=== PATIENT | female | born 1980 | race African-American/Black ===

== ENCOUNTER 2019-11-29 10:33 | Inpatient (IN) | payer MEDICAID ==
[~2019-11-29] VITALS: Ht 157.5 cm; Wt 79.4 kg
[2019-11-29 12:22] LABS: BASOPHILS % (AUTO) 0.5 % (0.0-2.0); EOSINOPHILS % (AUTO) 0.3 % (1.0-6.0); HEMATOCRIT 39.2 % (36-46); HEMOGLOBIN 13.3 g/dL (12.0-16.0); LYMPHOCYTES # (AUTO) 2.4 K/uL (1.0-4.8); LYMPHOCYTES % (AUTO) 24.9 % (22.0-44.0); MEAN CORPUSCULAR HGB CONC 33.9 G/dL (31.0-37.0); MEAN CORPUSCULAR VOLUME 91 fL (80-100); MONOCYTES # (AUTO) 0.7 K/uL (0.1-1.0); MONOCYTES % (AUTO) 7.3 % (2.0-9.0); NEUTROPHILS # (AUTO) 6.3 K/uL (1.8-7.7); PLATELET COUNT (AUTO) 285 K/uL (150-450); RED BLOOD CELL COUNT(AUTO) 4.29 MIL/uL (4.00-5.20); RED CELL DISTRIBUTION WIDTH 14.3 % (11.5-14.5)
[2019-11-29 12:37] LABS: ALANINE AMINOTRANSFERASE 35 U/L (12-78); ALBUMIN 4.5 g/dL (3.4-5.0); ALKALINE PHOSPHATASE 74 U/L (46-116); ANION GAP 13 mmol/L (8-16); ASPARTATE AMINOTRANSFERASE 35 U/L (15-37); BILIRUBIN,TOTAL 0.9 mg/dL (0.1-1.0); CALCIUM, TOTAL 9.8 mg/dL (8.8-10.5); CARBON DIOXIDE 27 mmol/L (22-29); CHLORIDE 99 mmol/L (98-107); GLOMERULAR FILTR. RATE CALC > 60 mL/min (>60); GLUCOSE,RANDOM 98 mg/dL (70-110); SODIUM SERUM 139 mmol/L (136-145); TOTAL PROTEIN, SERUM 7.8 g/dL (6.4-8.2); UREA NITROGEN, BLOOD 4 mg/dL (7-18)
[2019-11-29 12:43] LABS: POTASSIUM 2.8 mmol/L (3.5-5.1)
[2019-11-29] MEDS ORDERED: POTASSIUM CHLORIDE 20 MEQ ER TABLET PO ONE (12:45)
[2019-11-29 13:13] LABS: HCG,QUANTITATIVE < 1 mIU/mL (0-6)
[2019-11-29] MEDS ORDERED: ZOLPIDEM TARTRATE 10 MG TABLET PO PRN (14:00)
[2019-11-29] MEDS ORDERED: HALOPERIDOL 5 MG TABLET PO PRN (14:00)
[2019-11-29 14:30] LABS: FREE T4 (FREE THYROXINE) 0.47 ng/dL (0.76-1.46)
[2019-11-29 15:04] LABS: AMPHET/METH SCREEN,URINE NEGATIVE (NEGATIVE); BARBITURATE SCREEN, URINE NEGATIVE (NEGATIVE); BENZODIAZEPINES SCREEN,URINE NEGATIVE (NEGATIVE); CANNABINOID SCREEN,URINE NEGATIVE (NEGATIVE); COCAINE SCREEN,URINE NEGATIVE (NEGATIVE); METHADONE SCREEN, URINE NEGATIVE (NEGATIVE); OPIATE SCREEN,URINE NEGATIVE (NEGATIVE)
[2019-11-29 15:07] LABS: THYROID STIMULATING HORMONE 10.52 uIU/mL (0.36-3.74)
[2019-11-29 15:23] LABS: PHENCYCLIDINE SCREEN,URINE NEGATIVE (NEGATIVE)
[2019-11-29] MEDS: LORazepam 2 MG TABLET PO PRN (16:52)
[2019-11-29] MEDS ORDERED: INFLUENZA VIRUS VACCINE QVS 2019-20 (3YR+)/PF 60 MCG/0.5 ML SYRINGE IM ONE (17:15)
[2019-11-29] MEDS ORDERED: LOPERAMIDE HCL 2 MG CAPSULE PO PRN (21:00)
[2019-11-29] MEDS ORDERED: MAG HYDROX/AL HYDROX/SIMETH ES 30 ML SUSPENSION UDCUP PO PRN (21:00)
[2019-11-29] MEDS ORDERED: BACITRACIN 28.4 GM OINTMENT TP PRN (21:00)
[2019-11-29] MEDS ORDERED: PETROLATUM,WHITE 28 GM JELLY TP PRN (21:00)
[2019-11-29] MEDS ORDERED: CloNIDine HCL 0.1 MG TABLET PO PRN (21:00)
[2019-11-29] MEDS ORDERED: BENZOCAINE/MENTHOL LOZENGE MM PRN (21:00)
[2019-11-29] MEDS ORDERED: ONDANSETRON HCL 4 MG TABLET PO PRN (21:00)
[2019-11-29] MEDS ORDERED: ACETAMINOPHEN 325 MG TABLET PO PRN (21:00)
[2019-11-29] MEDS ORDERED: MAGNESIUM HYDROXIDE SUSPENSION 30 ML UDCUP PO PRN (21:00)
[2019-11-29] MEDS ORDERED: IBUPROFEN 600 MG TABLET PO PRN (21:00)
[2019-11-29] MEDS ORDERED: ALBUTEROL SULFATE HFA 90 MCG/PUFF 8 GM INHALER IH PRN (21:00)
[2019-11-30 08:42] LABS: CHOL/HDL RATIO 3.9 (3.9-5.7)
[2019-11-30] MEDS: DOCUSATE SODIUM 100 MG CAPSULE PO SCH (08:43)
[2019-11-30] MEDS: OMEPRAZOLE 20 MG CAPSULE PO SCH (08:43)
[2019-11-30] MEDS: LORazepam 2 MG TABLET PO PRN (08:43)
[2019-11-30 08:48] VITALS: BP 133/83
[2019-11-30 08:53] LABS: POTASSIUM 2.9 mmol/L (3.5-5.1)
[2019-11-30] MEDS ORDERED: RisperiDONE 3 MG TABLET PO SCH (09:00)
[2019-11-30] MEDS ORDERED: POTASSIUM CHLORIDE 20 MEQ ER TABLET PO ONE ×3 (09:15→21:00)
[2019-11-30 16:29] VITALS: BP 134/79
[2019-11-30] MEDS: RisperiDONE 1 MG TABLET PO SCH (16:54)
[2019-12-01 00:42] VITALS: BP 123/88
[2019-12-01 08:06] LABS: ANION GAP 11 mmol/L (8-16); CALCIUM, TOTAL 9.1 mg/dL (8.8-10.5); CARBON DIOXIDE 26 mmol/L (22-29); CHLORIDE 104 mmol/L (98-107); GLOMERULAR FILTR. RATE CALC > 60 mL/min (>60); GLUCOSE,RANDOM 95 mg/dL (70-110); POTASSIUM 3.5 mmol/L (3.5-5.1); SODIUM SERUM 141 mmol/L (136-145); UREA NITROGEN, BLOOD 9 mg/dL (7-18)
[2019-12-01] MEDS: DOCUSATE SODIUM 100 MG CAPSULE PO SCH (08:28)
[2019-12-01] MEDS: OMEPRAZOLE 20 MG CAPSULE PO SCH (08:28)
[2019-12-01] MEDS: RisperiDONE 1 MG TABLET PO SCH ×2 (08:28→16:19)
[2019-12-01 08:59] VITALS: BP 143/84
[2019-12-01 16:18] VITALS: BP 128/92
[2019-12-02 03:50] VITALS: BP 131/87
[2019-12-02 09:00] VITALS: BP 146/87
[2019-12-02] MEDS: RisperiDONE 1 MG TABLET PO SCH (09:00)
[2019-12-02] MEDS: OMEPRAZOLE 20 MG CAPSULE PO SCH (09:00)
[2019-12-02] MEDS: DOCUSATE SODIUM 100 MG CAPSULE PO SCH (09:00)
[2019-12-02] MEDS ORDERED: RISP1 PO (14:37)
== END 2019-12-02 15:54 | disposition home or self-care (01) | DRG 750 ==
LOC: EMS 10:35 → B2S 15:58
PROVIDERS: ADMIT Psychiatry & Neurology Psychiatry; ATTEND Psychiatry & Neurology Psychiatry
DX: F25.9 Schizoaffective disorder, unspecified (principal); E87.6 Hypokalemia; F41.9 Anxiety disorder, unspecified; G47.00 Insomnia, unspecified; K59.00 Constipation, unspecified
CPT/HCPCS: 84132; 84439; 84443; G0480